=== PATIENT | female | born 1970 | race African-American/Black ===

== ENCOUNTER 2017-05-08 09:24 | Emergency (ER) | payer MEDICAID ==
[~2017-05-08] VITALS: Ht 162.6 cm; Wt 81.6 kg
--- NOTE | 2017-05-08 10:10 | NUR ---
pt is in room #2b. dr ch evaluated the pt.
--- NOTE | 2017-05-08 10:40 | NUR ---
pt was d/c to home. d/c instructions given to the pt.
[2017-05-08 10:41] VITALS: BP 132/84
== END 2017-05-08 10:42 | disposition home or self-care (01) ==
LOC: ER 09:26
DX: J20.8 Acute bronchitis due to other specified organisms (principal); J02.8 Acute pharyngitis due to other specified organisms; B97.89 Other viral agents as the cause of diseases classified elsewhere
CPT/HCPCS: 36415; 86403; 87070; A4663